=== PATIENT | female | born 1970 | race Caucasian/White ===

== ENCOUNTER 2018-04-05 19:57 | Emergency (ER) | payer MEDICAID, SELFPAY ==
[2018-04-05 19:59] VITALS: BP 153/82; PULSE 103; RESP 17; TEMP 37.1; O2SAT 96; BMI 25.0
--- NOTE | 2018-04-05 21:09 | ED.VISSUMM ---
- ER Visit Summary Date of Service: 04/05/18 Chief Complaint: [Neck pain] History of Present Illness: The patient is a 48 F [presents the emergency department with neck and right arm pain that she has had chronically for about a year and a half. Patient states she moved to [place] about a week and a half ago from [place] where she was seeing a pain management doctor and was receiving [place] 7.5 mg tablets for her pain. Patient states that since last evening she has had an exacerbation of her chronic pain. Patient denies any trauma. She describes pain radiating down her right arm. She denies any weakness in extremities. Patient denies any fever.] Patient states that she had an MRI a year and a half ago that showed a herniated disc and she never followed up with neurologist or neurosurgeon. Physical Examination: [CHELSEA SCALES. Cranial nerves II through XII grossly intact. TMs clear. Mucous membranes moist. No adenopathy. Patient has tenderness palpation over right cervical paraspinal musculature. He has tenderness over right trapezius. Cardiovascular-regular rate and rhythm without murmur or ectopy Lungs-clear to auscultation, chest wall stable without crepitus or subcu emphysema Abdomen-normoactive bowel sounds, soft, nontender, no rebound or rigidity, no peritoneal signs. Extremities-intact ?4, normal range of motion, normal pulses, atraumatic]. Deep tendon reflexes are plus 2 out of 4 bilaterally at the bicep, tricep, and brachioradialis. Patient has normal strength in both upper extremities. Test Results: [None indicated] Emergency Department Course and Treatment: [Patient will be given a prescription for 12 [place] for pain and referral to orthopedics on-call. Patient has an appointment with primary care physician but not until June.] Treatment Plan: [12 [place] for pain.] Disposition: [Discharged to home in stable condition] Impression: [Acute exacerbation of chronic neck pain] This note was generated with [employer] dictation software. It may contain incorrect words, spelling, and punctuation that were not noted in review of the chart prior to signing ED Disposition - Plan for ED Patient: Chief Complaint: Other, Pain/Inj Referrals: Elda Jackson MD [Primary Care Provider] -
--- NOTE | 2018-04-05 21:11 | ED.DEP ---
ED Disposition - Plan for ED Patient: Chief Complaint: Other, Pain/Inj Instructions: ED Neck Pain No Trauma Prescriptions: Hydrocodone/Acetaminophen [Rollins 5-325 Tablet] 1 - 2 ea PO 4X/DAY PRN PRN 3 Days #12 tab PRN Reason: Pain Referrals: Elda Jackson MD [Primary Care Provider] - 5-7 Days Chelsea Mcgill DO [STAFF PHYSICIAN] - 3-5 Days
[2018-04-05 21:15] VITALS: BP 145/80; PULSE 80; RESP 14; O2SAT 98
[2018-04-05] MEDS: HYDROcodone Bitartrate/Apap 5/325 Tablet PO (21:16)
== END 2018-04-05 21:18 | disposition home or self-care (01) ==
PROVIDERS: Emergency Provider Emergency Medicine; Family Provider Internal Medicine; PCP Internal Medicine
DX: M54.2 Cervicalgia (principal); G89.29 Other chronic pain; D68.51 Activated protein C resistance; F31.9 Bipolar disorder, unspecified; F41.9 Anxiety disorder, unspecified; Z79.01 Long term (current) use of anticoagulants; Z79.899 Other long term (current) drug therapy; Z72.0 Tobacco use
CPT/HCPCS: 99282